=== PATIENT | female | born 1930 | race Caucasian/White ===

== ENCOUNTER 2016-07-02 07:00 | Outpatient (RCR) | payer MEDICARE ==
[2016-07-02 15:07] LABS: COLOR,URINE Yellow; GLUCOSE, URINE (UA) Negative (Negative); UROBILINOGEN,URINE 0.2 mg/dL (0.2-1.0)
[2016-07-02 15:50] LABS: BILIRUBIN,URINE 1+ (Negative); CLARITY,URINE Slightly Cloudy
[2016-07-02 15:54] LABS: RBC,URINE 0-2 /HPF; URINE CENTRIFUGED VOLUME <10mL Unspun
[2016-07-02 15:55] LABS: LEUKOCYTE ESTERASE, URINE 2+ (Negative)
[2016-07-03 13:17] LABS: PROTEIN UR MG/DL 9 mg/dL (1-14)
[2016-07-04 17:29] LABS: KAPPA LIGHT CHAINS SERUM 4.52 mg/dL; LAMBDA LIGHT CHAINS SERUM 2.11 mg/dL (())
== END 2016-09-30 | disposition home or self-care (01) ==
LOC: LAB 07:00 → EDSTATUS 07-05 06:55 → LAB 07-05 07:00
PROVIDERS: ATTEND Internal Medicine Nephrology
DX: N18.4 Chronic kidney disease, stage 4 (severe) (principal); I10 Essential (primary) hypertension
CPT/HCPCS: 36415; 81003; 81015; 82784; 83883; 84155; 84166; 86334

== ENCOUNTER → 2016-11-08 | Outpatient (CLI) | payer MEDICARE ==
[~2016-11-08] MED LIST: ACET325T38 PO; AML5T PO; ASP81CT PO; BENA40TA5 PO; CALC0.253 PO; HYDR1TABED PO; IBUP100T46 PO; IBUP200C PO; LUTE10TA2 PO; METF-473 PO; MULT-1034 PO; NEBI20TA2 PO; PRAV40TA2 PO; PREG150C PO; TRM50T PO; ZLP10T PO
== END ==
LOC: RT 11:44
PROVIDERS: ATTEND Internal Medicine
DX: R00.1 Bradycardia, unspecified (principal)
CPT/HCPCS: 93005

== ENCOUNTER → 2016-11-14 | Outpatient (CLI) | payer MEDICARE ==
[2016-11-14 15:04] LABS: ALBUMIN 4.3 g/dL (3.4-5.0); ANION GAP 15.6 MEQ/L (3-15)
== END ==
LOC: LAB 13:55
PROVIDERS: ATTEND Internal Medicine Nephrology
DX: N18.4 Chronic kidney disease, stage 4 (severe) (principal); I10 Essential (primary) hypertension; E11.9 Type 2 diabetes mellitus without complications
CPT/HCPCS: 36415; 80069; 82570; 84156